=== PATIENT | female | born 1980 | race Caucasian/White ===

== ENCOUNTER 2018-06-10 10:55 | Emergency (ER) | payer MEDICARE, OTHER ==
[~2018-06-10] VITALS: Ht 157.5 cm; Wt 90.7 kg
[~2018-06-10 10:55] MED LIST: AMLO-512 PO; LABE100 PO; LOSA25TA2 PO; METO50TA18 PO
[2018-06-10 14:06] LABS: BASOPHILS % (AUTO) 1.1 % (0.0-2.0); EOSINOPHILS % (AUTO) 0.8 % (1.0-6.0); HEMATOCRIT 34.4 % (36-46); LYMPHOCYTES # (AUTO) 1.9 K/uL (1.0-4.8); MEAN CORPUSCULAR HEMOGLOBIN 32.1 pg (26.0-34.0); MEAN CORPUSCULAR HGB CONC 34.8 G/dL (31.0-37.0); MEAN CORPUSCULAR VOLUME 92 fL (80-100); MONOCYTES # (AUTO) 0.7 K/uL (0.1-1.0); MONOCYTES % (AUTO) 6.3 % (2.0-9.0); NEUTROPHILS # (AUTO) 7.7 K/uL (1.8-7.7); NEUTROPHILS % (AUTO) 73.8 % (40.0-70.0); PLATELET COUNT (AUTO) 282 K/uL (150-450); RED BLOOD CELL COUNT(AUTO) 3.74 MIL/uL (4.00-5.20); RED CELL DISTRIBUTION WIDTH 13.2 % (11.5-14.5)
[2018-06-10 14:25] LABS: CALCIUM, TOTAL 8.9 mg/dL (8.8-10.5); CREATININE 7.72 mg/dL (0.60-1.30); POTASSIUM 4.4 mmol/L (3.5-5.1)
[2018-06-10 14:30] LABS: ALBUMIN 3.5 g/dL (3.4-5.0); BILIRUBIN,TOTAL 0.5 mg/dL (0.1-1.0); TOTAL PROTEIN, SERUM 8.6 g/dL (6.4-8.2)
[2018-06-10] MEDS ORDERED: HYDROCODONE/ACETAMINOPHEN 5-325 MG TABLET PO ONE (14:45)
[2018-06-10] MEDS ORDERED: LIDOCAINE 1% 10 ML VIAL INJ ONE (14:45)
[2018-06-10] MEDS ORDERED: CEPHALEXIN MONOHYDRATE 500 MG CAPSULE PO ONE (14:45)
[2018-06-10] MEDS ORDERED: POVIDONE-IODINE 10% 15 ML SOLUTION UD TP ONE (14:45)
[2018-06-10] MEDS ORDERED: SULFAMETHOX/TRIMETH DS 800-160 MG/TABLET PO ONE (14:45)
[2018-06-10 15:57] VITALS: BP 128/86
== END 2018-06-10 16:14 | disposition home or self-care (01) ==
LOC: EMS 10:56
DX: L02.415 Cutaneous abscess of right lower limb (principal); L03.115 Cellulitis of right lower limb; I12.0 Hypertensive chronic kidney disease with stage 5 chronic kidney disease or end stage renal disease; N18.6 End stage renal disease; E66.9 Obesity, unspecified; Z99.2 Dependence on renal dialysis; Z68.36 Body mass index [BMI] 36.0-36.9, adult
CPT/HCPCS: 10060; 36415; 80053; 85025; 93005; 99284; J3490

== ENCOUNTER 2018-06-12 13:23 | Emergency (ER) | payer MEDICARE, OTHER ==
[~2018-06-12] VITALS: Ht 157.5 cm; Wt 90.8 kg
[2018-06-12 13:35] VITALS: BP 141/89
[2018-06-12] MEDS ORDERED: SULF1TAB3 PO (13:46)
[2018-06-12] MEDS ORDERED: BIMA12.5OS OU (13:46)
[2018-06-12] MEDS ORDERED: ACET1TAB12 PO (13:46)
[2018-06-12] MEDS ORDERED: CEPH500 PO (13:46)
== END 2018-06-12 15:44 | disposition home or self-care (01) ==
LOC: EMS 13:23
DX: L02.415 Cutaneous abscess of right lower limb (principal); E66.9 Obesity, unspecified; I12.0 Hypertensive chronic kidney disease with stage 5 chronic kidney disease or end stage renal disease; N18.6 End stage renal disease; Z99.2 Dependence on renal dialysis; Z79.899 Other long term (current) drug therapy; Z68.36 Body mass index [BMI] 36.0-36.9, adult

== ENCOUNTER 2018-07-23 13:09 | Emergency (ER) | payer MEDICARE, OTHER ==
[~2018-07-23] VITALS: Ht 157.5 cm; Wt 91.0 kg
[~2018-07-23 13:09] MED LIST changes: +ACET1TAB12 PO; +BIMA12.5OS OU; +CEPH500 PO; -LABE100 PO; -LOSA25TA2 PO; +SULF1TAB3 PO
[2018-07-23] MEDS ORDERED: ACETAMINOPHEN 500 MG TABLET PO ONE (14:15)
[2018-07-23] MEDS ORDERED: CEPHALEXIN MONOHYDRATE 500 MG CAPSULE PO ONE (14:15)
[2018-07-23 15:50] VITALS: BP 131/78
== END 2018-07-23 15:50 | disposition home or self-care (01) ==
LOC: EMS 13:09
DX: L03.311 Cellulitis of abdominal wall (principal); I12.0 Hypertensive chronic kidney disease with stage 5 chronic kidney disease or end stage renal disease; N18.6 End stage renal disease; Z99.2 Dependence on renal dialysis; Z79.899 Other long term (current) drug therapy

== ENCOUNTER 2022-08-03 09:55 | Emergency (ER) | payer MEDICARE, MEDICAID ==
[~2022-08-03] VITALS: Ht 154.9 cm; Wt 86.4 kg
[~2022-08-03 09:55] MED LIST changes: +ACET-2080 PO; -ACET1TAB12 PO; +AMLO-258 PO; -AMLO-512 PO; -BIMA12.5OS OU; +BIMA2.5D4 OU; -CEPH500 PO; -SULF1TAB3 PO
[2022-08-03] MEDS ORDERED: SEVE0.8P6 PO (10:00)
[2022-08-03] MEDS ORDERED: LANT10005 PO (10:00)
[2022-08-03] MEDS ORDERED: LOSA-382 PO (10:00)
[2022-08-03 11:00] LABS: BASOPHILS % (AUTO) 1.1 % (0.0-2.0); EOSINOPHILS % (AUTO) 0.8 % (1.0-6.0); HEMATOCRIT 34.8 % (36-46); HEMOGLOBIN 11.9 g/dL (12.0-16.0); LYMPHOCYTES # (AUTO) 1.4 K/uL (1.0-4.8); LYMPHOCYTES % (AUTO) 19.1 % (22.0-44.0); MEAN CORPUSCULAR HEMOGLOBIN 31.8 pg (26.0-34.0); MEAN CORPUSCULAR HGB CONC 34.1 G/dL (31.0-37.0); MEAN CORPUSCULAR VOLUME 93 fL (80-100); MONOCYTES # (AUTO) 0.5 K/uL (0.1-1.0); MONOCYTES % (AUTO) 7.2 % (2.0-9.0); NEUTROPHILS # (AUTO) 5.3 K/uL (1.8-7.7); NEUTROPHILS % (AUTO) 71.8 % (40.0-70.0); PLATELET COUNT (AUTO) 239 K/uL (150-450); RED BLOOD CELL COUNT(AUTO) 3.73 MIL/uL (4.00-5.20); RED CELL DISTRIBUTION WIDTH 14.9 % (11.5-14.5)
[2022-08-03 11:05] LABS: CALCIUM, TOTAL 9.5 mg/dL (8.8-10.5); CREATININE 11.68 mg/dL (0.60-1.30); POTASSIUM 5.3 mmol/L (3.5-5.1)
[2022-08-03 11:11] LABS: ALBUMIN 3.4 g/dL (3.4-5.0); BILIRUBIN,TOTAL 0.4 mg/dL (0.1-1.0); TOTAL PROTEIN, SERUM 7.7 g/dL (6.4-8.2)
[2022-08-03 13:35] VITALS: BP 120/80
[2022-08-03] MEDS ORDERED: CEFP100T8 PO (14:07)
== END 2022-08-03 14:13 | disposition home or self-care (01) ==
LOC: EMS 10:01
DX: R34 Anuria and oliguria (principal); I10 Essential (primary) hypertension; Z88.1 Allergy status to other antibiotic agents
CPT/HCPCS: 80053; 85025; 99283

== ENCOUNTER 2023-09-28 17:23 | Emergency (ER) | payer MEDICARE, OTHER ==
[~2023-09-28] VITALS: Ht 154.9 cm; Wt 82.3 kg
[~2023-09-28 17:23] MED LIST changes: -ACET-2080 PO; +CEFP100T8 PO; +LANT10005 PO; +LOSA-382 PO; +SEVE0.8P7 PO
[2023-09-28 17:55] LABS: GLUCOMETER DEV NAME(LOC) ER.7; GLUCOSE,POINT OF CARE 532 MG/DL (70-110)
[2023-09-28] MEDS ORDERED: INSU100I26 SQ (18:03)
[2023-09-28] MEDS ORDERED: [UNRECOGNIZED DRUG - CODE] PO (18:03)
[2023-09-28] MEDS ORDERED: GLIP5TAB15 PO (18:03)
[2023-09-28] MEDS ORDERED: SENN-277 PO (18:03)
[2023-09-28] MEDS ORDERED: PARO10TA71 PO (18:03)
[2023-09-28] MEDS ORDERED: METO50 PO (18:03)
[2023-09-28] MEDS ORDERED: PRED-729 PO (18:03)
[2023-09-28] MEDS ORDERED: KPHOS250 PO (18:03)
[2023-09-28] MEDS ORDERED: AMLO5TAB66 PO (18:03)
[2023-09-28] MEDS ORDERED: DORZ10DR10 OD (18:03)
[2023-09-28] MEDS ORDERED: BACTSS PO (18:03)
[2023-09-28] MEDS ORDERED: FAMO20 PO (18:03)
[2023-09-28] MEDS ORDERED: DOCU-412 PO (18:03)
[2023-09-28 18:23] LABS: BASOPHILS % (AUTO) 0.9 % (0.0-2.0); EOSINOPHILS % (AUTO) 0.4 % (1.0-6.0); HEMATOCRIT 41.9 % (36-46); HEMOGLOBIN 13.9 g/dL (12.0-16.0); LYMPHOCYTES # (AUTO) 1.2 K/uL (1.0-4.8); LYMPHOCYTES % (AUTO) 19.7 % (22.0-44.0); MEAN CORPUSCULAR HEMOGLOBIN 32.4 pg (26.0-34.0); MEAN CORPUSCULAR HGB CONC 33.3 G/dL (31.0-37.0); MEAN CORPUSCULAR VOLUME 97 fL (80-100); MONOCYTES # (AUTO) 0.4 K/uL (0.1-1.0); MONOCYTES % (AUTO) 5.9 % (2.0-9.0); NEUTROPHILS # (AUTO) 4.3 K/uL (1.8-7.7); NEUTROPHILS % (AUTO) 73.1 % (40.0-70.0); PLATELET COUNT (AUTO) 231 K/uL (150-450); RED CELL DISTRIBUTION WIDTH 14.7 % (11.5-14.5); WHITE BLOOD COUNT (AUTO) 5.9 K/uL (4.5-11.0)
[2023-09-28] MEDS: SODIUM CHLORIDE 0.9% 1,000 ML IV ONE (18:28)
[2023-09-28 18:44] LABS: APPEARANCE,URINE CLEAR (CLEAR); BILIRUBIN,URINE NEGATIVE (NEGATIVE); COLOR,URINE COLORLESS (YELLOW); GLUCOSE, URINE (UA) >=1000 mg/dL (NEGATIVE); KETONES,URINE NEGATIVE (NEGATIVE); LEUKOCYTE ESTERASE ,URINE NEGATIVE (NEGATIVE); NITRATE,URINE NEGATIVE (NEGATIVE); OCCULT BLOOD,URINE NEGATIVE (NEGATIVE); PH,URINE 5.5 (5.0-8.0); PROTEIN,URINE NEGATIVE (NEGATIVE); SPECIFIC GRAVITIY, URINE 1.031 (1.003-1.030); UROBILINOGEN,URINE <=1.0 mg/dL (<=1.0)
[2023-09-28 18:54] LABS: CALCIUM, TOTAL 9.8 mg/dL (8.8-10.5); CREATININE 1.29 mg/dL (0.60-1.30); POTASSIUM 4.8 mmol/L (3.5-5.1)
[2023-09-28 18:55] LABS: BACTERIA,URINE None Seen /HPF (None Seen); RBC,URINE None Seen /HPF (0-2); WBC,URINE None Seen /HPF (0-5)
[2023-09-28] MEDS: HYDROCODONE/ACETAMINOPHEN 5-325 MG TABLET PO ONE (20:06)
[2023-09-28] MEDS: INSULIN REGULAR, HUMAN 100 UNITS/ML IVP ONE (20:06)
[2023-09-28 22:33] VITALS: BP 135/98; PULSE 98; RESP 18; TEMP 98.4
[2023-09-28] MEDS ORDERED: HYDR-4062 PO (22:38)
== END 2023-09-28 22:45 | disposition home or self-care (01) ==
LOC: EMS 17:25
DX: S82.892A Other fracture of left lower leg, initial encounter for closed fracture (principal); E11.65 Type 2 diabetes mellitus with hyperglycemia; I10 Essential (primary) hypertension; Z79.84 Long term (current) use of oral hypoglycemic drugs; X58.XXXA Exposure to other specified factors, initial encounter; Y93.89 Activity, other specified; Y92.89 Other specified places as the place of occurrence of the external cause; Y99.8 Other external cause status
CPT/HCPCS: 99285; 96374; 29515; 96361; 80048; 81001; 82962; 85025; 36415; 73562; 73590; 73610; 93005; J1815; 81003